=== PATIENT | female | born 1985 | race Caucasian/White ===

== ENCOUNTER 2019-01-28 03:08 | Inpatient (IN) | payer OTHER, MEDICAID ==
[2019-01-28 03:52] LABS: ADD MAN DIFF? NO
[2019-01-28] MEDS: LACTATED RINGER'S 1,000 ML IV ×3 (03:54→08:34)
[2019-01-28] MEDS ORDERED: BUTORPHANOL 2 MG INJ IV (04:00)
[2019-01-28] MEDS ORDERED: CARBOPROST 250 MCG INJ IM ×2 (04:00→10:30)
[2019-01-28] MEDS ORDERED: OXYTOCIN 30 UNITS/LR 500 ML IV ×3 (04:00→10:30)
[2019-01-28] MEDS ORDERED: LIDOCAINE 1% (MPF) 30 ML INJ INJ (04:00)
[2019-01-28] MEDS ORDERED: METHYLERGONOVINE 0.2 MG INJ IM ×2 (04:00→10:30)
[2019-01-28 04:05] LABS: WHITE BLOOD COUNT 17.2 10^3/ul (4.8-10.8)
[2019-01-28 04:05] LABS: ABNORMAL IP MESSAGE 1; BASOPHIL # 0.1 10^3/ul (0.0-0.1); BASOPHILS % 0.3 % (0.0-2.0); EOSINOPHILS # 0.1 10^3/ul (0.0-0.5); EOSINOPHILS % 0.8 % (0.0-7.0); HEMATOCRIT 35.2 % (37.0-47.0); HEMOGLOBIN 10.9 g/dl (12.0-16.0); LYMPHOCYTES % 17.2 % (15.0-51.0); MEAN CORPUSCULAR HEMOGLOBIN 22.7 pg (29.0-33.0); MEAN CORPUSCULAR VOLUME 73.2 fl (82.0-101.0); MEAN PLATELET VOLUME 10.1 fl (7.4-10.4); MONOCYTE # 2.3 10^3/ul (0.3-0.9); MONOCYTES % 13.1 % (0.0-11.0); NEUTROPHIL # 11.5 10^3/ul (1.6-7.5); NEUTROPHILS % 66.7 % (39.0-77.0); PLATELET COUNT 347 10^3/UL (140-415); RED BLOOD COUNT 4.81 10^6/ul (4.20-5.40); RED CELL DISTRIBUTION WIDTH 16.1 % (11.5-14.5)
[2019-01-28 04:13] LABS: POSITIVE DIFF @See below
[2019-01-28 04:17] LABS: INR 0.91; PROTIME 12.4 Sec (11.9-14.9)
[2019-01-28 04:18] LABS: PARTIAL THROMBOPLASTIN TIME 25.8 Sec (23.0-35.0)
[2019-01-28] MEDS ORDERED: DIPHENHYDRAMINE 50 MG INJ IV (04:30)
[2019-01-28] MEDS ORDERED: ONDANSETRON 4 MG INJ IV (04:30)
[2019-01-28] MEDS ORDERED: NALOXONE (0.4 MG/ML) INJ IV (04:30)
[2019-01-28 04:53] LABS: HEPATITIS B SURFACE ANTIGEN NEGATIVE (NEGATIVE)
[2019-01-28] MEDS: FENTAnyl 2MCG/ML-ROPIV 0.2% 100 ML BAG EPI (05:05)
[2019-01-28] MEDS: OXYTOCIN 30 UNITS/LR 500 ML IV ×3 (05:07→15:45)
[2019-01-28] MEDS: MISOPROSTOL 200 MCG TAB PR (08:34)
[2019-01-28] MEDS ORDERED: ACETAMINOPHEN 325 MG TAB PO (10:30)
[2019-01-28] MEDS ORDERED: MISOPROSTOL 200 MCG TAB PR (10:30)
[2019-01-28] MEDS ORDERED: NACL 0.9% 3 ML SYG IV (10:30)
[2019-01-28] MEDS ORDERED: HYDROCODONE/APAP (5/325) TAB PO (10:30)
[2019-01-28] MEDS: BENZOCAINE 20% 56 ML SPRAY TOP (11:42)
[2019-01-28] MEDS: WITCH HAZEL/GLYCERIN PAD PR (11:42)
[2019-01-28] MEDS: IBUPROFEN 600 MG TAB PO ×2 (12:17→18:16)
[2019-01-28 15:23] LABS: RAPID PLASMA REAGIN NONREACTIVE (NR)
[2019-01-28] MEDS: SENNA/DOCUSATE NA (8.6MG/50MG) TAB PO (22:21)
[2019-01-29] MEDS: IBUPROFEN 600 MG TAB PO ×5 (00:46→23:44)
[2019-01-29 07:56] LABS: ADD MAN DIFF? NO
[2019-01-29 08:02] LABS: ABNORMAL IP MESSAGE 1; BASOPHIL # 0.1 10^3/ul (0.0-0.1); BASOPHILS % 0.3 % (0.0-2.0); EOSINOPHILS # 0.1 10^3/ul (0.0-0.5); EOSINOPHILS % 0.8 % (0.0-7.0); HEMATOCRIT 27.5 % (37.0-47.0); HEMOGLOBIN 8.4 g/dl (12.0-16.0); LYMPHOCYTES # 3.1 10^3/ul (0.8-2.9); LYMPHOCYTES % 18.7 % (15.0-51.0); MEAN CORPUSCULAR HEMOGLOBIN 22.7 pg (29.0-33.0); MEAN CORPUSCULAR HGB CONC 30.5 g/dl (32.0-37.0); MEAN CORPUSCULAR VOLUME 74.3 fl (82.0-101.0); MONOCYTE # 1.7 10^3/ul (0.3-0.9); MONOCYTES % 10.3 % (0.0-11.0); NEUTROPHIL # 11.4 10^3/ul (1.6-7.5); NEUTROPHILS % 68.3 % (39.0-77.0); NUCLEATED RED BLOOD CELLS% 0.1 /100WBC (0.0-0.0); PLATELET COUNT 260 10^3/UL (140-415); RED CELL DISTRIBUTION WIDTH 16.3 % (11.5-14.5)
[2019-01-29 08:02] LABS: WHITE BLOOD COUNT 16.7 10^3/ul (4.8-10.8)
[2019-01-29 08:03] LABS: POSITIVE DIFF @See below
[2019-01-29] MEDS: SENNA/DOCUSATE NA (8.6MG/50MG) TAB PO ×2 (08:17→21:00)
[2019-01-30] MEDS: IBUPROFEN 600 MG TAB PO ×2 (06:26→11:21)
[2019-01-30] MEDS: SENNA/DOCUSATE NA (8.6MG/50MG) TAB PO (09:00)
== END 2019-01-30 14:25 | disposition home or self-care (01) | DRG 807 ==
LOC: OBT 03:08 → L-D 03:10 → OBT 03:25 → L-D 03:25 → PP1 10:12
PROVIDERS: Obstetrics & Gynecology
PROC: 10D07Z6 Extraction of Products of Conception, Vacuum, Via Natural or Artificial Opening (ICD-10-PCS; principal; 2019-01-28)
DX: O76 Abnormality in fetal heart rate and rhythm complicating labor and delivery (principal); Z37.0 Single live birth; O69.81X0 Labor and delivery complicated by cord around neck, without compression, not applicable or unspecified; Z3A.39 39 weeks gestation of pregnancy
CPT/HCPCS: 62322; 85025; 85610; 85730; 86592; 86850; 86900; 86901; 87340